=== PATIENT | male | born 1955 | race African-American/Black ===

== ENCOUNTER 2017-10-31 15:29 | Inpatient (IN) | payer OTHER ==
--- NOTE | 2017-10-31 15:32 | PDOC ---
Rapid Medical Evaluation Chief Complaint: Shortness of Breath Medical Evaluation: Allergies Allergy/AdvReac Type Severity Reaction Status Date / Time No Known Drug Allergies Allergy Verified 04/07/15 14:28 10/31/17 15:31 I have performed a brief in-person evaluation of this patient. The patient presents with a chief complaint of:Worsening sob and b/l LE edema x 1 month, no CP. Smoker w/ h/o CAD, CHF, does not remember diuretic he is taking. Cards is Dr Davis, PMD Dr Zambrano Pertinent physical exam findings:Stable w/ clear chest/lungs w/ 1+ edema b/l I have ordered the following:ekg/cxr/labs The patient will proceed to the ED for further evaluation.
[2017-10-31 15:35] VITALS: BMI 36.4
[2017-10-31 16:03] LABS: BASO % 0.7 % (0-2.0); EOS % 0.5 % (0-4.5); HEMOGLOBIN 16.8 GM/dL (11.7-16.9); MCH 31.7 pg (25.7-33.7); MCHC 32.9 g/dl (32.0-35.9); MEAN CELL VOLUME 96.2 fl (80-96); MEAN PLT VOLUME 10.7 fl (7.5-11.1); MONO % 11.5 % (3.8-10.2); NEUT % 74.3 % (42.8-82.8); PLATELET COUNT 107 K/MM3 (134-434); RDW 14.2 % (11.9-15.9); WHITE BLOOD COUNT 6.2 K/mm3 (4.0-10.0)
[2017-10-31 16:33] LABS: ALBUMIN 3.4 g/dl (3.4-5.0); ANION GAP 15 (8-16); BILIRUBIN,TOTAL 2.2 mg/dL (0.2-1.0); BLOOD UREA NITROGEN 33 mg/dL (7-18); CALCIUM 8.8 mg/dL (8.5-10.1); CHLORIDE 102 mmol/L (98-107); CO2 21 mmol/L (21-32); CREATININE 1.5 mg/dL (0.7-1.3); GLUCOSE,RANDOM 117 mg/dL (74-106); SGOT/AST 25 U/L (15-37); SGPT/ALT 30 U/L (12-78); SODIUM 138 mmol/L (136-145); TOT PROT 6.9 g/dl (6.4-8.2)
[2017-10-31 16:36] LABS: ALK PHOS 79 U/L (45-117)
[2017-10-31 17:57] LABS: URINE APPEARANCE CLEAR; URINE BILIRUBIN NEGATIVE (NEGATIVE); URINE BLOOD NEGATIVE (NEGATIVE); URINE COLOR YELLOW; URINE GLUCOSE (UA) NEGATIVE (NEGATIVE); URINE KETONE NEGATIVE (NEGATIVE); URINE NITRITE NEGATIVE (NEGATIVE); URINE PROTEIN NEGATIVE (NEGATIVE); URINE UROBILINOGEN 4.0 E.U/dl mg/dL (0.2-1.0)
[2017-10-31 17:58] LABS: URINE LEUK ESTERASE 3+ (NEGATIVE)
[2017-10-31 17:59] LABS: EPI CELLS RARE /HPF (FEW); URINE MUCUS RARE
--- NOTE | 2017-10-31 19:50 | PDOC ---
History of Present Illness - General Chief Complaint: Shortness of Breath Stated Complaint: (PCP SENT) Time Seen by Provider: 10/31/17 15:36 History Source: Patient Exam Limitations: No Limitations - History of Present Illness Initial Comments: 10/31/17 19:49 The patient is a 62M with a PMH of CHF and CAD who presents from his PCP (Dr. Zambrano)'s office for CHF exacerbation. The patient states that for the past week , he has had worsening SALES and orthopnea with increased swelling in his LE that now reach his abdomen. He states that he feels a baseline SOB and feels like he is always coughing up phlegm. He states he was admitted once in the past for this. He denies any CP, fever, chills, nausea, vomiting. Past History - Past Medical History Allergies/Adverse Reactions: Allergies Allergy/AdvReac Type Severity Reaction Status Date / Time No Known Drug Allergies Allergy Verified 10/31/17 15:34 Home Medications: Ambulatory Orders Carvedilol 3.125 mg PO BID 05/18/15 Furosemide [Lasix -] 40 mg PO DAILY 05/18/15 Ramipril 5 mg PO DAILY 05/18/15 Aspirin [Ecotrin] 81 mg PO DAILY 02/23/16 Metolazone [Zaroxolyn -] 5 mg PO DAILY 02/23/16 Spironolactone [Aldactone] 25 mg PO DAILY 02/23/16 Anemia: No Asthma: No Cancer: No Cardiac Disorders: No CVA: No COPD: No CHF: Yes Dementia: No Diabetes: No GI Disorders: No Disorders: Yes (urinary retention, has 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) HTN: Yes Hypercholesterolemia: No Liver Disease: No Seizures: No Thyroid Disease: No - Surgical History Abdominal Surgery: No Appendectomy: No Cardiac Surgery: No Cholecystectomy: No Lung Surgery: No Neurologic Surgery: No Orthopedic Surgery: No - Suicide/Smoking/Psychosocial Hx Smoking History: Current some day smoker Number of Cigarettes Smoked Daily: 10 Information on smoking cessation initiated: No 'Breaking Loose' booklet given: 02/25/16 Hx Alcohol Use: No Drug/Substance Use Hx: No Substance Use Type: None Hx Substance Use Treatment: No Review of Systems - Review of Systems Able to Perform ROS?: Yes Comments:: 10/31/17 20:01 GENERAL/CONSTITUTIONAL: No fever or chills. No weakness. HEAD, EYES, EARS, NOSE AND THROAT: No change in vision. No ear pain or discharge. No sore throat. CARDIOVASCULAR: No chest pain, palpitations, or lightheadedness. RESPIRATORY: Positive for shortness of breath and cough. No wheezing or hemoptysis. GASTROINTESTINAL: No nausea, vomiting, diarrhea, constipation, or abdominal pain. GENITOURINARY: No dysuria, frequency, hematuria, or change in urination. MUSCULOSKELETAL: No joint or muscle swelling or pain. No neck or back pain. SKIN: Positive for swelling. No rash or lesions. NEUROLOGIC: No headache, numbness, tingling, weakness, loss of consciousness, or change in strength/sensation. ENDOCRINE: No increased thirst. No abnormal weight change. HEMATOLOGIC/LYMPHATIC: No anemia, easy bleeding, or history of blood clots. ALLERGIC/IMMUNOLOGIC: No hives or skin allergy. Is the patient limited Occitan proficient: No *Physical Exam - Vital Signs Last Vital Signs Temp Pulse Resp BP Pulse Ox 97 F L 96 H 18 137/83 96 10/31/17 15:31 10/31/17 15:31 10/31/17 15:31 10/31/17 15:31 10/31/17 15:31 - Physical Exam Comments: 10/31/17 20:03 GENERAL: Well developed, well nourished. Awake and alert. No acute distress. HEENT: Normocephalic, atraumatic. Hearing grossly normal. Moist mucous membranes. PERRLA, EOMI. No conjunctival pallor. Sclera are non-icteric. NECK: Supple. Full ROM. Mild JVD. Carotid pulses 2+ and symmetric, without bruits. No thyromegaly. No lymphadenopathy. CARDIOVASCULAR: Regular rate and rhythm. No murmurs, rubs, or gallops. PULMONARY: No evidence of respiratory distress. Decreased lung sounds in R lower lobe. ABDOMINAL: Soft. Non-tender. Non-distended. No rebound or guarding. GENITOURINARY: No CVA tenderness bilaterally. MUSCULOSKELETAL: Normal range of motion at all joints. No bony deformities or tenderness. EXTREMITIES: No cyanosis. No clubbing. 4+ edema until thigh, then 1+ until lower abdomen. No calf tenderness. SKIN: Warm and dry. Normal capillary refill. No rashes. No jaundice. NEUROLOGICAL: Alert, awake, appropriate. Cranial nerves 2-12 intact. Normal speech. Gait is normal without ataxia. PSYCHIATRIC: Cooperative. Good eye contact. Appropriate mood and affect. ED Treatment Course - LABORATORY CBC & Chemistry Diagram: 10/31/17 16:00 10/31/17 16:00 - ADDITIONAL ORDERS Additional order review: Laboratory Results 10/31/17 10/31/17 10/31/17 17:52 16:00 15:55 Sodium 138 Potassium 4.0 Chloride 102 Carbon Dioxide 21 Anion Gap 15 BUN 33 H D Creatinine 1.5 H Creat Clearance w eGFR 47.12 Random Glucose 117 H D Calcium 8.8 Total Bilirubin 2.2 H D AST 25 D ALT 30 D Alkaline Phosphatase 79 Creatine Kinase 147 Troponin I 0.04 D B-Natriuretic Peptide 33405.25 H Total Protein 6.9 Albumin 3.4 Urine Color Yellow Urine Appearance Clear Urine pH 5.0 Ur Specific [place] 1.019 Urine Protein Negative Urine Glucose (UA) Negative Urine Ketones Negative Urine Blood Negative Urine Nitrite Negative Urine Bilirubin Negative Urine Urobilinogen 4.0 e.u/dl Ur Leukocyte Esterase 3+ H Urine WBC (Auto) 22 Urine RBC (Auto) 3 Ur Epithelial Cells Rare Urine Mucus Rare 10/31/17 16:00 RBC 5.30 MCV 96.2 H MCHC 32.9 RDW 14.2 D MPV 10.7 D Neutrophils % 74.3 Lymphocytes % 13.0 D Monocytes % 11.5 H Eosinophils % 0.5 Basophils % 0.7 Medical Decision Making - Medical Decision Making 10/31/17 20:04 The patient is a 62 M with a PMH of CAD and CHF who presents from Dr. Zambrano's office with a CHF exacerbation. BNP 7[address]66+. Dr. Zambrano is aware and accepts admission. Will give 40IV lasix in ED. Dr. Polanco consulted for cards. Pending admission. *DC/Admit/Observation/Transfer Diagnosis at time of Disposition: CHF (congestive heart failure) - Discharge Dispostion Condition at time of disposition: Stable Admit: Yes - Referrals Referrals: Carla Zambrano MD [Primary Care Provider] - - Patient Instructions - Post Discharge Activity
[2017-10-31] MEDS ORDERED: FUROSEMIDE 40 MG/4 ML INJECTABLE VIAL ONE (19:57)
[2017-10-31] MEDS ORDERED: FUROSEMIDE 40 MG/4 ML INJECTABLE VIAL IVPUSH ONE (20:07)
--- NOTE | 2017-10-31 20:17 | PDOC ---
Attending Attestation - Resident Resident Name: Wes Wu - ED Attending Attestation I have performed the following: I have examined & evaluated the patient, The case was reviewed & discussed with the resident, I agree w/resident's findings & plan, Exceptions are as noted - HPI HPI: 10/31/17 20:47 62 M with h/o CHF, CAD, HTN, HLD, presenting to ED with SOB. Pt states that over the past week, he has had worsening SALES, orthopnea, and BLE swelling. Denies chest pain at this time. Endorses dry cough. Denies F/C. Pt sent from Dr. Zambrano's office for evaluation of CHF. - Physicial Exam PE: 10/31/17 20:49 "GENERAL: Awake, alert, and fully oriented, in no acute distress HEAD: No signs of trauma EYES: PERRLA, EOMI, sclera anicteric, conjunctiva clear ENT: Auricles normal inspection, hearing grossly normal, nares patent, oropharynx clear without exudates. Moist mucosa NECK: Nontender, no stepoffs, Normal ROM, supple, no lymphadenopathy, JVD, or masses LUNGS: Bibasilar rales. No wheezes, and no rhonchi HEART: Regular rate and rhythm, normal S1 and S2, no murmurs, rubs or gallops ABDOMEN: Soft, nontender, normoactive bowel sounds. No guarding, no rebound. No masses EXTREMITIES: +2 PE BLE No clubbing or cyanosis. No cords, erythema, or tenderness NEUROLOGICAL: Cranial nerves II through XII intact. 5/5 strength and sensation in all extremities, Normal speech, normal gait, normal cerebellar function SKIN: Warm, Dry, normal turgor, no rashes or lesions noted. " - Medical Decision Making 10/31/17 20:49 62 M with SOB, SALES, BLE swelling, concerning for volume overload/CHF exacerbation. EKG unremarkable, no s/s of ACS. - Labs, trop, BNP - CXR - IV lasix - Admit
--- NOTE | 2017-11-01 10:40 | HP ---
Admitting History and Physical - Primary Care Physician PCP: Carla Zambrano - Admission Chief Complaint: SOB History of Present Illness: 62 yr old male with h/o sHF Class C, NYHA class 3, with EF 20-25%, HTN, dyslipedemia, present with worsening LE swelling, SOB, PNd and Orthopnea, patient is poor historian, compliance is ?, History Source: Patient - Past Medical History Cardiovascular: Yes: CHF Renal/: Yes: Renal Failure Heme/Onc: Yes: Anemia - Smoking History Smoking history: Current some day smoker Aproximately how many cigarettes per day: 10 - Alcohol/Substance Use Hx Alcohol Use: No Home Medications - Allergies Allergies/Adverse Reactions: Allergies Allergy/AdvReac Type Severity Reaction Status Date / Time No Known Drug Allergies Allergy Verified 10/31/17 15:34 - Home Medications Home Medications: Ambulatory Orders Carvedilol 3.125 mg PO BID 05/18/15 Furosemide [Lasix -] 40 mg PO DAILY 05/18/15 Ramipril 5 mg PO DAILY 05/18/15 Aspirin [Ecotrin] 81 mg PO DAILY 02/23/16 Metolazone [Zaroxolyn -] 5 mg PO DAILY 02/23/16 Spironolactone [Aldactone] 25 mg PO DAILY 02/23/16 Family Disease History - Family Disease History Family History: Unremarkable Review of Systems - Review of Systems Constitutional: reports: Malaise HENT: reports: No Symptoms Cardiovascular: reports: Edema, Palpitations, Shortness of Breath Gastrointestinal: reports: Bloating Musculoskeletal: reports: Back Pain Integumentary: reports: No Symptoms Neurological: reports: Dizziness Endocrine: reports: No Symptoms Hematology/Lymphatic: reports: No Symptoms Physical Examination Vital Signs: Vital Signs Temperature 97.7 F 11/01/17 07:10 Pulse Rate 71 11/01/17 07:10 Respiratory Rate 18 11/01/17 07:10 Blood Pressure 112/54 11/01/17 07:10 O2 Sat by Pulse Oximetry (%) 95 11/01/17 07:10 Elderly M sick looking , in mild respiratory distress HEENT: Mm moist, mild anemia, PEERRLA, EOMI NECK: JVD+, no Bruit CHEST: B/L Basal crepts, no Chest wall tenderness CVS; S1S2 irr SM in MA, ABD: + distention , non tender Bs + EXT ; B/L +2 edema and Pulses +, no calf tenderness. CLIENT SERVICES ASSISTANT: AOX3 Moving all extremities, non focal Labs: CBC, BMP 10/31/17 16:00 10/31/17 16:00 Imaging - Results Chest X-ray: Pending (Cardiomegaly , B/l basal crepts) EKG: Report Reviewed (94 NSR ocassional PVcs no acute ST t changes) Problem List - Problems (1) Acute exacerbation of congestive heart failure Assessment/Plan: known case of systolic HF with last 25%, most likely non-ischaemic cardiomyopathy, will rpt ECHO, serial CE , Cardiology consult, Lasix 40 mg BID IVSS F/U BMP cont Coreg Ramipril. aldactone Code(s): I50.9 - HEART FAILURE, UNSPECIFIED (2) Acute combined systolic and diastolic HF (heart failure), NYHA class 3 Assessment/Plan: Cont Diuretics, Daily wt F/U BMP, Optimize CHF management, if persistent low EF needs evaluation for AICD placement Code(s): I50.41 - ACUTE COMBINED SYSTOLIC AND DIASTOLIC (CONGESTIVE) HRT FAIL (3) HTN (hypertension) Code(s): I10 - ESSENTIAL (PRIMARY) HYPERTENSION (4) Chronic kidney disease (CKD), stage III (moderate) Assessment/Plan: Due to HTN dises F/U BMP Code(s): N18.3 - CHRONIC KIDNEY DISEASE, STAGE 3 (MODERATE) (5) Hypercholesteremia Assessment/Plan: F/U Lipid panel, TSH, HbA!C optimize statin Code(s): E78.00 - PURE HYPERCHOLESTEROLEMIA, UNSPECIFIED
[2017-11-01] MEDS: FUROSEMIDE 40 MG/4 ML INJECTABLE VIAL IVPUSH SCH (11:10)
[2017-11-01] MEDS ORDERED: ENOXAPARIN NA (PORCINE) 40 MG/0.4 ML DISP.SYRIN SQ ONE (11:12)
[2017-11-01] MEDS: ENOXAPARIN NA (PORCINE) 30 MG/0.3 ML DISP.SYRIN SQ SCH (11:13)
--- NOTE | 2017-11-01 12:16 | EKG ---
Test Reason : Blood Pressure : / mmHG Vent. Rate : 080 BPM Atrial Rate : 080 BPM P-R Int : 186 ms QRS Dur : 104 ms QT Int : 410 ms P-R-T Axes : 068 062 -64 degrees QTc Int : 472 ms SINUS RHYTHM WITH FREQUENT PREMATURE VENTRICULAR COMPLEXES POSSIBLE LEFT ATRIAL ENLARGEMENT NONSPECIFIC T WAVE ABNORMALITY PROLONGED QT ABNORMAL ECG WHEN COMPARED WITH ECG OF 31-OCT-2017 20:28, T WAVE INVERSION NOW EVIDENT IN LATERAL LEADS Confirmed by ANTHONY LEON MD ([id number]) on 11/01/2017 12:16:08 PM Referred By: Confirmed By:ANTHONY LEON MD
--- NOTE | 2017-11-01 12:21 | CONS ---
DATE OF CONSULTATION: 11/01/2017 TIME OF CONSULTATION: 10 a.m. REQUESTING PHYSICIAN: Carla Zambrano MD LOCATION: Emergency room. CHIEF COMPLAINTS: 1. Increasing shortness of breath. 2. Increasing edema and abdominal girth. HISTORY OF PRESENT ILLNESS: The patient is a 62-year-old gentleman who has history of hypertension and congestive heart failure, who was admitted with increasing dyspnea on exertion, followed by orthopnea and progressive pedal edema and increasing abdominal girth, and he was experiencing paroxysmal nocturnal dyspnea. He denies having chest pain or discomfort either at rest or with exertion. No history of palpitations, lightheadedness, dizziness, presyncope, or syncope. He has cough that is scantly productive and also has been wheezing. On questioning, he admits to poor dietary compliance and apparently has not been taking his medications as prescribed. There is no history of diabetes mellitus. No history of rheumatic fever or heart murmur. PAST HISTORY: As mentioned in the history of present illness. SURGICAL HISTORY: Patient says he has had no surgeries. 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 He continues to smoke but did not elaborate at the amount of cigarettes he smokes on a daily basis. He periodically has a drink. Denies drug use. FAMILY HISTORY: His father is . Patient is unsure of the cause of his , and he was not close to his father. Mother in her 70s, related to dementia. He has no siblings. ALLERGIES: None reported. MEDICATIONS: The patient is unsure of the name of the medications. In the hospital record, it was reported that he was on the following medications: 1. Carvedilol 3.125 mg p.o. b.i.d. 2. Furosemide 40 mg p.o. daily. 3. Ramipril 5 mg p.o. daily. 4. Aspirin 81 mg p.o. daily. 5. Metolazone (Zaroxolyn) 5 mg p.o. daily. 6. Spironolactone 25 mg p.o. daily. In-hospital medications: Furosemide IV. REVIEW OF SYSTEMS: Constitutional: No history of chills, fever, or night sweats reported. No history of unintentional weight loss. HEENT: No history of headaches, diplopia, blurred vision. No history of epistaxis, hoarseness, tinnitus, or deafness reported. Cardiovascular: See history of present illness. Respiratory: See history of present illness. No history of hemoptysis or tuberculosis. Gastrointestinal: History of increasing abdominal girth and intermittent discomfort. No history of nausea, vomiting, melena, or hematemesis. No history of change in bowel habits reported. Central Nervous System: No history of lightheadedness, dizziness, presyncope, or syncope. No history of seizures or focal weakness. Endocrine: No history of polyuria or polydipsia. Denies intolerance to cold or warm weather. Genitourinary: History of difficulty in micturition. Patient states that in the past he had a Collins catheter for nearly a year. No history of hematuria, dysuria, or frequency reported. Musculoskeletal: No history of myalgias or arthralgias. Hematological: No history of ecchymosis, bleeding, or anemia. PHYSICAL EXAMINATION: General: A 62-year-old gentleman who was mildly dyspneic. There was no pallor, cyanosis, clubbing, or jaundice. Vital Signs: Weight 247 pounds. Blood pressure 112/54 mmHg. Pulse 71 beats per minute and regular. Temperature 97.7 degrees Fahrenheit. Oxygen saturation 95% on room air. Neck: Supple. Elevated JVP at 30 degrees. Positive hepatojugular reflex. Carotids were 1+ to 2+. No bruits were appreciated. There was no thyromegaly. Heart: PMI was not well localized. No heaves or thrills. Heart sounds were distant. No murmurs were heard. There was a S3 gallop at the apex. Lungs: Decreased breath sounds at the bases. No expiratory wheezing. There were scattered crepitations at the right base. Chest: Normal AP diameter. Expansion was symmetrical. Abdomen: Protuberant, distended, nontender. No hepatosplenomegaly was appreciated. No palpable masses were felt. There was dullness on percussion involving both flanks, and there was dullness over the hypogastric area with slight guarding. Bowel sounds were diminished. No bruits were heard. Extremities: Bilateral 3+ to 4+ pitting edema involving both lower extremities and thighs. Dorsalis pedis and posterior tibial pulses could not be palpated. LABORATORY DATA: Chemistry: Sodium 138, potassium 4.0, chloride 102, CO2 of 21 mmol/L. BUN 33, creatinine 1.5 mg/dL. Random glucose 117 mg/dL. Calcium 8.8 mg/dL. Total bilirubin 2.2. AST 25, ALT 30, alkaline phosphatase 79. CK 147. Troponin 0.04. BNP 12,993.25. CBC: WBC count 6200, hemoglobin 16.8 g, hematocrit 51%, platelet count 107,000. Differential: Neutrophils 74.3%, lymphocytes 13.0%, monocytes 11.5%, eosinophils 0.5%, basophils 0.7%. Urinalysis revealed elevated urine urobilinogen 4.0. Urine leukocyte esterase was 3+. Urine WBCs were 22, RBCs were 3, rare urine mucus and epithelial cells. X-ray chest, October 31, 2017: Since April 07, 2015, there is a persistently elevated right hemidiaphragm with right base atelectasis and infiltrate with fluid. There is large heart, degenerative changes, and clear left lung. Followup recommended. IMPRESSION: 1. Congestive heart failure, [place] Heart Classification 4; etiology most probably related to hypertension, hypertensive cardiovascular disease. 2. Coronary artery disease needs exclusion. 3. Generalized anasarca secondary to number 1. 4. Urinary retention, suspect distended urinary bladder; etiology to be determined. 5. Poor compliance. 6. Tobacco abuse. 7. Thrombocytopenia, etiology to be determined; hypersplenism needs to be excluded. 8. Renal insufficiency. 9. Chronic cough; etiology A. Secondary to congestive heart failure. B. Angiotensin-converting enzyme inhibitors. C. Asthma needs to be excluded. RECOMMENDATIONS: 1. All his medications need to be obtained. 2. Resume Lasix preceded by Zaroxolyn initially 2.5 mg p.o. 1/2 hour before Lasix and dose could be adjusted. 3. Consider switching him to an ARB. 4. Resume carvedilol and titrate to tolerance or maximum dose of 25 mg b.i.d. 5. Follow up ECGs and enzymes. 6. Follow up comprehensive metabolic profile, CBC. 7. Consider an ultrasound of the urinary bladder, and if it is distended, he may require a Collins catheter. 8. Echocardiogram. 9. Follow up chest x-ray. 10. Further suggestions will depend upon the results of the above-mentioned tests. Thank you for your referral. Yours sincerely, FAB SWIFT M.D. [id number]
[2017-11-01 12:23] LABS: ANION GAP 11 (8-16); BLOOD UREA NITROGEN 30 mg/dL (7-18); CALCIUM 8.9 mg/dL (8.5-10.1); CHLORIDE 102 mmol/L (98-107); CO2 25 mmol/L (21-32); CREATININE 1.3 mg/dL (0.7-1.3); GLUCOSE,RANDOM 108 mg/dL (74-106); SODIUM 138 mmol/L (136-145)
[2017-11-01 12:27] LABS: MAGNESIUM 2.6 mg/dL (1.8-2.4); POTASSIUM 4.9 mmol/L (3.5-5.1)
[2017-11-01] MEDS ORDERED: CARVEDILOL 3.125 MG TABLET (FP) ONE (14:50)
[2017-11-01] MEDS: CARVEDILOL 3.125 MG TABLET (FP) PO SCH ×2 (14:51→21:56)
--- NOTE | 2017-11-01 16:09 | EKG ---
Test Reason : Blood Pressure : / mmHG Vent. Rate : 094 BPM Atrial Rate : 094 BPM P-R Int : 166 ms QRS Dur : 102 ms QT Int : 384 ms P-R-T Axes : 055 090 034 degrees QTc Int : 480 ms SINUS RHYTHM WITH OCCASIONAL PREMATURE VENTRICULAR COMPLEXES POSSIBLE LEFT ATRIAL ENLARGEMENT RIGHTWARD AXIS PULMONARY DISEASE PATTERN PROLONGED QT ABNORMAL ECG WHEN COMPARED WITH ECG OF 07-APR-2015 13:56, PREMATURE VENTRICULAR COMPLEXES ARE NOW PRESENT QUESTIONABLE CHANGE IN QRS AXIS T WAVE INVERSION NO LONGER EVIDENT IN LATERAL LEADS Confirmed by ANTHONY LEON MD ([id number]) on 11/01/2017 4:08:49 PM Referred By: Confirmed By:ANTHONY LEON MD
[2017-11-01] MEDS: LOSARTAN POTASSIUM 25 MG TABLET PO SCH (16:45)
[2017-11-01 18:59] LABS: BASO % 0.8 % (0-2.0); EOS % 0.7 % (0-4.5); HEMATOCRIT 48.8 % (35.4-49); LYMPH % 17.5 % (8-40); MCH 31.9 pg (25.7-33.7); MCHC 32.7 g/dl (32.0-35.9); MEAN CELL VOLUME 97.5 fl (80-96); MEAN PLT VOLUME 11.6 fl (7.5-11.1); MONO % 13.9 % (3.8-10.2); NEUT % 67.1 % (42.8-82.8); RBC 5.01 M/mm3 (4.00-5.60); RDW 14.2 % (11.9-15.9); WHITE BLOOD COUNT 5.2 K/mm3 (4.0-10.0)
[2017-11-01 19:30] LABS: PLATELET COUNT 93 K/MM3 (134-434)
[2017-11-01 19:31] LABS: PLATELET ESTIMATE DECREASED
[2017-11-01] MEDS ORDERED: FUROSEMIDE 40 MG/4 ML INJECTABLE VIAL IVPUSH ONE (19:52)
[2017-11-02 07:42] LABS: ANION GAP 7 (8-16); BLOOD UREA NITROGEN 32 mg/dL (7-18); CALCIUM 8.1 mg/dL (8.5-10.1); CHLORIDE 102 mmol/L (98-107); CO2 29 mmol/L (21-32); CREATININE 1.4 mg/dL (0.7-1.3); GLUCOSE,RANDOM 105 mg/dL (74-106); SODIUM 138 mmol/L (136-145)
[2017-11-02 07:58] LABS: BASO % 0.7 % (0-2.0); EOS % 0.8 % (0-4.5); HEMATOCRIT 48.5 % (35.4-49); LYMPH % 20.5 % (8-40); MCH 31.7 pg (25.7-33.7); MCHC 32.9 g/dl (32.0-35.9); MEAN CELL VOLUME 96.2 fl (80-96); MEAN PLT VOLUME 11.2 fl (7.5-11.1); MONO % 12.9 % (3.8-10.2); NEUT % 65.1 % (42.8-82.8); PLATELET COUNT 86 K/MM3 (134-434); RBC 5.04 M/mm3 (4.00-5.60); RDW 14.1 % (11.9-15.9); WHITE BLOOD COUNT 4.4 K/mm3 (4.0-10.0)
[2017-11-02] MEDS ORDERED: RAMIPRIL 5 MG CAPSULE (FP) PO SCH (10:00)
[2017-11-02] MEDS ORDERED: METOLAZONE 5 MG TABLET PO SCH (10:00)
[2017-11-02] MEDS: ASPIRIN COATED 81 MG TABLET.EC PO SCH (10:14)
[2017-11-02] MEDS: CARVEDILOL 3.125 MG TABLET (FP) PO SCH (10:14)
[2017-11-02] MEDS: METOLAZONE 2.5 MG TABLET (FP) PO SCH (10:14)
[2017-11-02] MEDS: ENOXAPARIN NA (PORCINE) 30 MG/0.3 ML DISP.SYRIN SQ SCH (10:14)
[2017-11-02] MEDS: SPIRONOLACTONE 25 MG TABLET (FP) PO SCH (10:15)
[2017-11-02] MEDS: LOSARTAN POTASSIUM 25 MG TABLET PO SCH (10:15)
[2017-11-02] MEDS: FUROSEMIDE 40 MG/4 ML INJECTABLE VIAL IVPUSH SCH (11:36)
--- NOTE | 2017-11-02 12:39 | PN ---
Progress Note (short form) - Note Progress Note: 62 year old AA gentleman admitted with congestive heart failure and generalized anasarca. Patient states that shortness of breath is less pronounced, no history of chest pain or discomfort. He denies having hypertension or diabetes mellitus. Active Medications Generic Name Dose Route Start Last Admin Trade Name Zaheerq PRN Reason Stop Dose Admin Aspirin 81 mg 11/02/17 10:00 11/02/17 10:14 Ecotrin - PO 81 mg DAILY DIVINE Administration Carvedilol 3.125 mg 11/01/17 11:45 11/02/17 10:14 Coreg - PO 3.125 mg BID DIVINE Administration Enoxaparin Sodium 30 mg 11/01/17 10:45 11/02/17 10:14 Lovenox - SQ 30 mg DAILY DIVINE Administration Furosemide 40 mg 11/02/17 10:00 11/02/17 11:36 Lasix Injection - IVPUSH 40 mg DAILY DIVINE Administration Losartan Potassium 25 mg 11/01/17 15:30 11/02/17 10:15 Cozaar - PO 25 mg DAILY DIVINE Administration Metolazone 2.5 mg 11/02/17 09:30 11/02/17 10:14 Zaroxolyn - PO 2.5 mg DAILY@0930 DIVINE Administration Spironolactone 25 mg 11/02/17 10:00 11/02/17 10:15 Aldactone - PO 25 mg DAILY DIVINE Administration 62 year old male in no acute distress, no pallor, clubbing, cyanosis or jaundice. Last Vital Signs Temp Pulse Resp BP Pulse Ox 96.6 F L 75 20 116/50 100 11/02/17 10:00 11/02/17 10:00 11/02/17 10:00 11/02/17 10:00 11/02/17 09:00 Neck: Supple, no JVD, +HJR, carotids were equal and upstrokes were normal, no thyromegaly appreciated. Heart: PMI was in the 5th intercostal space, no heaves or thrills. Distant heart sounds S1 and S2 were normal. No murmurs or gallops were appreciated. Lungs: Clear on auscultation bilaterally. Abdomen: Soft, distended, nontender, no hepatosplenomegaly appreciated, dullness in both flank on percussion most likely related to ascites. No palpable masses were felt. Extremities: No calf tenderness. + 2+ bilateral pitting edema. Pulses are normal. CBC, BMP 11/02/17 06:50 11/02/17 06:50 Echocardiogram: Interpretation Summary The left ventricle is severely dilated. Left ventricular systolic function is severely reduced. There is severe global hypokinesis of the left ventricle. The right ventricle is severely dilated. The right ventricular systolic function is severely reduced. The left atrium is severely dilated The right atrium is severely dilated. There is mild to moderate mitral regurgitation. There is mild tricuspid regurgitation. EK10/31/2017 Sinus rhythm, IACD, indeterminate axis, unifocal premature ventricular beats. Nonspecific ST and T wave abnormalities. 11/01/2017 Sinus rhythm with IACD, frequent unifocal and single premature ventricular beats compare to 10/31/2017. St and T wave abnormalities are noted and are more pronounced in lead II III aVF and V6. IMPRESSION: 1. Dilated Congestive Cardiomyopathy of undetermined etiology. 2. Congestive heart failure, NYHA Class IV. 3. Severe LV and RV systolic dysfunction. 4. Generalized anasarca secondary to number 1. 5. Renal insufficiency. 6. Chronic cough, etiology; a). Secoondary to GRETA inhibitors. b). CHF. 7. Poor compliance. 8. Ventricular premature beats. RECOMMENDATION: 1. In view of echocardiographic findings, patient should have a cardiac catheterization to determine the etiology of biventricular failure. 2. Patient most likely is a candidate for ICD for primary prophylaxis as his EF is below 30%. 3. Risk modifications and medication compliance is of paramount importance and this has been discussed with the patient. 4. Daily weights. 5. If blood pressure is stable, cautious effort titration of Carvedilol. PROGNOSIS: Critical.
--- NOTE | 2017-11-02 16:48 | PN ---
Progress Note, Physician Chief Complaint: Feels improved less SOB no c/o chest pain - Current Medication List Current Medications: Active Medications Aspirin (Ecotrin -) 81 mg PO DAILY [facility] Last Admin: 11/02/17 10:14 Dose: 81 mg Carvedilol (Coreg -) 6.25 mg PO BID [facility] Enoxaparin Sodium (Lovenox -) 30 mg SQ DAILY [facility] Last Admin: 11/02/17 10:14 Dose: 30 mg Furosemide (Lasix Injection -) 40 mg IVPUSH DAILY [facility] Last Admin: 11/02/17 11:36 Dose: 40 mg Losartan Potassium (Cozaar -) 25 mg PO DAILY [facility] Last Admin: 11/02/17 10:15 Dose: 25 mg Metolazone (Zaroxolyn -) 2.5 mg PO DAILY@0930 [facility] Last Admin: 11/02/17 10:14 Dose: 2.5 mg Spironolactone (Aldactone -) 25 mg PO DAILY [facility] Last Admin: 11/02/17 10:15 Dose: 25 mg - Objective Vital Signs: Vital Signs Temperature 97.5 F L 11/02/17 14:00 Pulse Rate 81 11/02/17 14:00 Respiratory Rate 16 11/02/17 14:00 Blood Pressure 103/72 11/02/17 14:00 O2 Sat by Pulse Oximetry (%) 100 11/02/17 09:00 Elderly M no respiratory distress HEENT: Mm moist, mild anemia, PEERRLA, EOMI NECK: JVD+, no Bruit CHEST: B/L Basal crepts, no Chest wall tenderness CVS; S1S2 irr SM in [place], ABD: + distention , non tender Bs + EXT ; B/L +1 edema and Pulses +, no calf tenderness. 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 all extremities, non focal Labs: CBC, BMP 11/02/17 06:50 11/02/17 06:50 Problem List - Problems (1) Acute exacerbation of congestive heart failure Assessment/Plan: known case of systolic HF with last 25%, most likely non-ischaemic cardiomyopathy, pt ECHO show low EF , Cardiology consult, Lasix 40 mg daily IVSS F/U BMP cont Coreg L oasratan aldactone< Metazolone Code(s): I50.9 - HEART FAILURE, UNSPECIFIED (2) Acute combined systolic and diastolic HF (heart failure), NYHA class 3 Assessment/Plan: Cont Diuretics, Daily wt F/U BMP, Optimize CHF management, persistent low EF needs evaluation for AICD placement Code(s): I50.41 - ACUTE COMBINED SYSTOLIC AND DIASTOLIC (CONGESTIVE) HRT FAIL (3) HTN (hypertension) Assessment/Plan: Well controlled on current meds Code(s): I10 - ESSENTIAL (PRIMARY) HYPERTENSION (4) Chronic kidney disease (CKD), stage III (moderate) Assessment/Plan: Due to HTN disease F/U BMP Code(s): N18.3 - CHRONIC KIDNEY DISEASE, STAGE 3 (MODERATE)
[2017-11-02] MEDS: CARVEDILOL 6.25 MG TABLET (FP) PO SCH (21:06)
[2017-11-02] MEDS ORDERED: ZOLPIDEM TARTRATE 5 MG TABLET PO PRN (22:00)
[2017-11-03] MEDS: METOLAZONE 2.5 MG TABLET (FP) PO SCH (09:44)
[2017-11-03] MEDS: ENOXAPARIN NA (PORCINE) 30 MG/0.3 ML DISP.SYRIN SQ SCH (09:45)
[2017-11-03] MEDS: FUROSEMIDE 40 MG/4 ML INJECTABLE VIAL IVPUSH SCH (10:47)
[2017-11-03] MEDS: LOSARTAN POTASSIUM 25 MG TABLET PO SCH (10:47)
[2017-11-03] MEDS: CARVEDILOL 6.25 MG TABLET (FP) PO SCH ×2 (10:47→21:06)
[2017-11-03] MEDS: ASPIRIN COATED 81 MG TABLET.EC PO SCH (10:47)
[2017-11-03] MEDS: SPIRONOLACTONE 25 MG TABLET (FP) PO SCH (10:47)
--- NOTE | 2017-11-03 15:10 | PN ---
Progress Note, Physician Chief Complaint: Feels better History of Present Illness: CHF - Current Medication List Current Medications: Active Medications Aspirin (Ecotrin -) 81 mg PO DAILY [facility] Last Admin: 11/03/17 10:47 Dose: 81 mg Carvedilol (Coreg -) 6.25 mg PO BID [facility] Last Admin: 11/03/17 10:47 Dose: 6.25 mg Enoxaparin Sodium (Lovenox -) 30 mg SQ DAILY [facility] Last Admin: 11/03/17 09:45 Dose: 30 mg Furosemide (Lasix Injection -) 40 mg IVPUSH DAILY [facility] Last Admin: 11/03/17 10:47 Dose: 40 mg Losartan Potassium (Cozaar -) 25 mg PO DAILY [facility] Last Admin: 11/03/17 10:47 Dose: 25 mg Metolazone (Zaroxolyn -) 2.5 mg PO DAILY@0930 [facility] Last Admin: 11/03/17 09:44 Dose: 2.5 mg Spironolactone (Aldactone -) 25 mg PO DAILY [facility] Last Admin: 11/03/17 10:47 Dose: 25 mg Zolpidem Tartrate (Ambien -) 5 mg PO PRN PRN Reason: INSOMNIA - Objective Vital Signs: Vital Signs Temperature 97.3 F L 11/03/17 13:05 Pulse Rate 80 11/03/17 13:05 Respiratory Rate 19 11/03/17 13:05 Blood Pressure 110/68 11/03/17 13:05 O2 Sat by Pulse Oximetry (%) 99 11/03/17 09:00 Constitutional: Yes: Mild Distress Eyes: Yes: WNL HENT: Yes: WNL Neck: Yes: WNL Cardiovascular: Yes: WNL Respiratory: Yes: WNL Gastrointestinal: Yes: WNL ...Rectal Exam: Yes: Deferred Genitourinary: Yes: WNL Edema: LLE: 2+, RLE: 2+ Psychiatric: Yes: Alert Labs: CBC, BMP 11/02/17 06:50 11/02/17 06:50 Assessment/Plan Continue same trt May need to transfer to [facility]
[2017-11-04] MEDS: METOLAZONE 2.5 MG TABLET (FP) PO SCH (09:01)
[2017-11-04] MEDS: CARVEDILOL 6.25 MG TABLET (FP) PO SCH ×2 (09:01→21:31)
[2017-11-04] MEDS: ENOXAPARIN NA (PORCINE) 30 MG/0.3 ML DISP.SYRIN SQ SCH (09:01)
[2017-11-04] MEDS: SPIRONOLACTONE 25 MG TABLET (FP) PO SCH (09:01)
[2017-11-04] MEDS: ASPIRIN COATED 81 MG TABLET.EC PO SCH (09:02)
[2017-11-04] MEDS: LOSARTAN POTASSIUM 25 MG TABLET PO SCH (09:02)
[2017-11-04] MEDS: FUROSEMIDE 40 MG/4 ML INJECTABLE VIAL IVPUSH SCH (09:49)
[2017-11-04 11:44] LABS: CHLORIDE 99 mmol/L (98-107); SODIUM 134 mmol/L (136-145)
[2017-11-04 11:50] LABS: ANION GAP 8 (8-16); BLOOD UREA NITROGEN 28 mg/dL (7-18); CALCIUM 8.3 mg/dL (8.5-10.1); CO2 27 mmol/L (21-32); CREATININE 1.4 mg/dL (0.7-1.3); GLUCOSE,RANDOM 142 mg/dL (74-106)
--- NOTE | 2017-11-04 12:01 | PN ---
Progress Note, Physician Chief Complaint: Feels improved less SOB no c/o chest pain loosing wt - Current Medication List Current Medications: Active Medications Aspirin (Ecotrin -) 81 mg PO DAILY [facility] Last Admin: 11/04/17 09:02 Dose: 81 mg Carvedilol (Coreg -) 6.25 mg PO BID [facility] Last Admin: 11/04/17 09:01 Dose: 6.25 mg Enoxaparin Sodium (Lovenox -) 30 mg SQ DAILY [facility] Last Admin: 11/04/17 09:01 Dose: 30 mg Furosemide (Lasix Injection -) 40 mg IVPUSH DAILY [facility] Last Admin: 11/04/17 09:49 Dose: 40 mg Losartan Potassium (Cozaar -) 25 mg PO DAILY [facility] Last Admin: 11/04/17 09:02 Dose: 25 mg Metolazone (Zaroxolyn -) 2.5 mg PO DAILY@0930 [facility] Last Admin: 11/04/17 09:01 Dose: 2.5 mg Spironolactone (Aldactone -) 25 mg PO DAILY [facility] Last Admin: 11/04/17 09:01 Dose: 25 mg Zolpidem Tartrate (Ambien -) 5 mg PO HS PRN PRN Reason: INSOMNIA - Objective Vital Signs: Vital Signs Temperature 97.7 F 11/04/17 09:00 Pulse Rate 74 11/04/17 09:00 Respiratory Rate 18 11/04/17 09:00 Blood Pressure 95/55 11/04/17 09:00 O2 Sat by Pulse Oximetry (%) 95 11/04/17 09:00 Elderly M no respiratory distress HEENT: Mm moist, mild anemia, PEERRLA, EOMI NECK: JVD, no Bruit CHEST: B/L Basal crepts, no Chest wall tenderness CVS; S1S2 irr SM in [place], ABD: + distention , non tender Bs + EXT ; B/L +1 edema and Pulses +, no calf tenderness. 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 aldactone, Patient is loosing wt. Code(s): I50.9 - HEART FAILURE, UNSPECIFIED (2) Acute combined systolic and diastolic HF (heart failure), NYHA class 3 Assessment/Plan: Cont Diuretics, Daily wt F/U BMP, Optimize CHF management, persistent low EF needs evaluation for AICD placement Code(s): I50.41 - ACUTE COMBINED SYSTOLIC AND DIASTOLIC (CONGESTIVE) HRT FAIL (3) HTN (hypertension) Assessment/Plan: Well controlled on current meds Code(s): I10 - ESSENTIAL (PRIMARY) HYPERTENSION (4) Chronic kidney disease (CKD), stage III (moderate) Assessment/Plan: Due to HTN dises F/U BMP Code(s): N18.3 - CHRONIC KIDNEY DISEASE, STAGE 3 (MODERATE)
[2017-11-04 12:31] LABS: CHOLESTEROL 123 mg/dL (50-200); HDL CHOLESTEROL 36 mg/dL (40-60); LDL CHOLESTEROL (ONLY SJRH) 81 mg/dL (5-100); LIPASE 161 U/L (73-393); TRIGLYCERIDES 77 mg/dL (35-160)
--- NOTE | 2017-11-04 13:37 | PN ---
Progress Note (short form) - Note Progress Note: 62 year old AA gentleman admitted with congestive heart failure, h/o severe LV systolic dysfunction, Patient states that shortness of breath is less pronounced , no history of chest pain or discomfort. No palpitations, no pnd or orthopnea Active Medications Aspirin (Ecotrin -) 81 mg PO DAILY [facility] Last Admin: 11/04/17 09:02 Dose: 81 mg Carvedilol (Coreg -) 6.25 mg PO BID [facility] Last Admin: 11/04/17 09:01 Dose: 6.25 mg Enoxaparin Sodium (Lovenox -) 30 mg SQ DAILY [facility] Last Admin: 11/04/17 09:01 Dose: 30 mg Furosemide (Lasix Injection -) 40 mg IVPUSH DAILY [facility] Last Admin: 11/04/17 09:49 Dose: 40 mg Losartan Potassium (Cozaar -) 25 mg PO DAILY [facility] Last Admin: 11/04/17 09:02 Dose: 25 mg Metolazone (Zaroxolyn -) 2.5 mg PO DAILY@0930 [facility] Last Admin: 11/04/17 09:01 Dose: 2.5 mg Spironolactone (Aldactone -) 25 mg PO DAILY [facility] Last Admin: 11/04/17 09:01 Dose: 25 mg Zolpidem Tartrate (Ambien -) 5 mg PO HS PRN PRN Reason: INSOMNIA 62 year old male in no acute distress, no pallor, clubbing, cyanosis or jaundice. Last Vital Signs Temp Pulse Resp BP Pulse Ox 97.7 F 74 18 95/55 95 11/04/17 09:00 11/04/17 09:00 11/04/17 09:00 11/04/17 09:00 11/04/17 09:00 Intake & Output 11/01/17 11/02/17 11/03/17 11/04/17 23:59 23:59 23:59 23:59 Intake Total 100 860 860 150 Output Total 3809 642 5006 Balance 100 -865 660 -1350 Weight 247 lb 237 lb 3.2 oz Neck: Supple, no JVD, +HJR, carotids were equal and upstrokes were normal, no thyromegaly appreciated. Heart: PMI was in the 5th intercostal space, no heaves or thrills. Distant heart sounds S1 and S2 were normal. No murmurs or gallops were appreciated. Lungs: Clear on auscultation bilaterally. Abdomen: Soft, distended, nontender, no hepatosplenomegaly appreciated, dullness in both flank on percussion most likely related to ascites. No palpable masses were felt. Extremities: No calf tenderness. 1+ rt. lower extremitiy pitting edema and trace LLE edema. Pulses are normal. CBC, BMP 11/02/17 06:50 11/04/17 11:20 Echocardiogram: Interpretation Summary The left ventricle is severely dilated. Left ventricular systolic function is severely reduced. There is severe global hypokinesis of the left ventricle. The right ventricle is severely dilated. The right ventricular systolic function is severely reduced. The left atrium is severely dilated The right atrium is severely dilated. There is mild to moderate mitral regurgitation. There is mild tricuspid regurgitation. EK10/31/2017 Sinus rhythm, IACD, indeterminate axis, unifocal premature ventricular beats. Nonspecific ST and T wave abnormalities. 11/01/2017 Sinus rhythm with IACD, frequent unifocal and single premature ventricular beats compare to 10/31/2017. St and T wave abnormalities are noted and are more pronounced in lead II III aVF and V6. IMPRESSION: 1. Dilated Congestive Cardiomyopathy of undetermined etiology. 2. Congestive heart failure, NYHA Class II 3. Severe LV and RV systolic dysfunction. 4. Ventricular premature beats. 5. Renal insufficiency. 6. Chronic cough, etiology; a). Secoondary to GRETA inhibitors. b). CHF. 7. Poor compliance. RECOMMENDATION: 1. Will need cardiac cath. 2. Patient most likely is a candidate for ICD for primary prophylaxis as his EF is below 30%. 3. Risk modifications and medication compliance is of paramount importance and this has been discussed with the patient. 4. Daily weights. 5. If blood pressure is stable, cautious upward titration of Carvedilol. PROGNOSIS: Critical.
[2017-11-05 06:26] VITALS: PULSE 72
[2017-11-05 07:07] LABS: BASO % 0.8 % (0-2.0); HEMATOCRIT 48.2 % (35.4-49); HEMOGLOBIN 15.9 GM/dL (11.7-16.9); LYMPH % 16.1 % (8-40); MCH 31.5 pg (25.7-33.7); MEAN CELL VOLUME 95.5 fl (80-96); MEAN PLT VOLUME 10.6 fl (7.5-11.1); MONO % 12.3 % (3.8-10.2); NEUT % 69.8 % (42.8-82.8); PLATELET COUNT 83 K/MM3 (134-434); RBC 5.05 M/mm3 (4.00-5.60); RDW 13.9 % (11.9-15.9); WHITE BLOOD COUNT 5.6 K/mm3 (4.0-10.0)
[2017-11-05 07:36] LABS: ANION GAP 12 (8-16); BLOOD UREA NITROGEN 31 mg/dL (7-18); CALCIUM 9.2 mg/dL (8.5-10.1); CHLORIDE 97 mmol/L (98-107); CO2 27 mmol/L (21-32); CREATININE 1.2 mg/dL (0.7-1.3); GLUCOSE,RANDOM 104 mg/dL (74-106); POTASSIUM 4.2 mmol/L (3.5-5.1); SODIUM 136 mmol/L (136-145)
[2017-11-05] MEDS: METOLAZONE 2.5 MG TABLET (FP) PO SCH (08:53)
[2017-11-05] MEDS: CARVEDILOL 6.25 MG TABLET (FP) PO SCH (09:08)
[2017-11-05] MEDS: SPIRONOLACTONE 25 MG TABLET (FP) PO SCH (09:08)
[2017-11-05] MEDS: ASPIRIN COATED 81 MG TABLET.EC PO SCH (09:08)
[2017-11-05] MEDS: LOSARTAN POTASSIUM 25 MG TABLET PO SCH (09:08)
[2017-11-05] MEDS: FUROSEMIDE 40 MG/4 ML INJECTABLE VIAL IVPUSH SCH ×2 (09:27→09:54)
[2017-11-05] MEDS: ENOXAPARIN NA (PORCINE) 30 MG/0.3 ML DISP.SYRIN SQ SCH (09:27)
--- NOTE | 2017-11-05 09:35 | PN ---
Progress Note, Physician Chief Complaint: Feels better History of Present Illness: Admitted with CHF and non compliance - Current Medication List Current Medications: Active Medications Aspirin (Ecotrin -) 81 mg PO DAILY [facility] Last Admin: 11/05/17 09:08 Dose: 81 mg Carvedilol (Coreg -) 6.25 mg PO BID [facility] Last Admin: 11/05/17 09:08 Dose: 6.25 mg Enoxaparin Sodium (Lovenox -) 30 mg SQ DAILY [facility] Last Admin: 11/05/17 09:27 Dose: 30 mg Furosemide (Lasix Injection -) 40 mg IVPUSH DAILY [facility] Last Admin: 11/05/17 09:27 Dose: 40 mg Losartan Potassium (Cozaar -) 25 mg PO DAILY [facility] Last Admin: 11/05/17 09:08 Dose: 25 mg Metolazone (Zaroxolyn -) 2.5 mg PO DAILY@0930 [facility] Last Admin: 11/05/17 08:53 Dose: 2.5 mg Spironolactone (Aldactone -) 25 mg PO DAILY [facility] Last Admin: 11/05/17 09:08 Dose: 25 mg Zolpidem Tartrate (Ambien -) 5 mg PO HS PRN PRN Reason: INSOMNIA - Objective Vital Signs: Vital Signs Temperature 98.3 F 11/05/17 06:25 Pulse Rate 72 11/05/17 06:25 Respiratory Rate 18 11/05/17 06:25 Blood Pressure 93/59 11/05/17 06:25 O2 Sat by Pulse Oximetry (%) 95 11/04/17 20:37 Constitutional: Yes: No Distress Eyes: Yes: WNL HENT: Yes: WNL Neck: Yes: WNL Cardiovascular: Yes: WNL Respiratory: Yes: Poor Air Entry Gastrointestinal: Yes: WNL ...Rectal Exam: Yes: Deferred Genitourinary: Yes: WNL Edema: Yes Edema: LLE: 2+, RLE: 2+ Neurological: Yes: Alert ...Motor Strength: WNL Labs: CBC, BMP 11/05/17 06:48 11/05/17 06:48 Assessment/Plan Zaroxaiiln to be increased
[2017-11-05] MEDS ORDERED: FUROSEMIDE 40 MG/4 ML INJECTABLE VIAL IVPUSH SCH (09:44)
--- NOTE | 2017-11-05 10:54 | PN ---
Progress Note (short form) - Note Progress Note: 62 year old AA gentleman admitted with congestive heart failure, h/o severe LV systolic dysfunction, Patient states that shortness of breath is less pronounced , no history of chest pain or discomfort. spoke to Dr. Zambrano regarding further workup, including cardiac cath, possible myocardial biopsy. EP evaluation for ICD. Patient is agreeable and is aware of the indications, risks /complications of the procedure and has agreed to be transferred to [facility]. PCP increased the dose of Zaroxyln. Progressive wait loss Active Medications Generic Name Dose Route Start Last Admin Trade Name Freq PRN Reason Stop Dose Admin Aspirin 81 mg 11/02/17 10:00 11/05/17 09:08 Ecotrin - PO 81 mg DAILY [facility] Administration Carvedilol 6.25 mg 11/02/17 22:00 11/05/17 09:08 Coreg - PO 6.25 mg BID [facility] Administration Enoxaparin Sodium 30 mg 11/01/17 10:45 11/05/17 09:27 Lovenox - SQ 30 mg DAILY [facility] Administration Furosemide 40 mg 11/05/17 09:44 Lasix Injection - IVPUSH BIDLASIX [facility] Losartan Potassium 25 mg 11/01/17 15:30 11/05/17 09:08 Cozaar - PO 25 mg DAILY [facility] Administration Metolazone 5 mg 11/05/17 13:30 Zaroxolyn - PO BID@0530,1330 [facility] Spironolactone 25 mg 11/02/17 10:00 11/05/17 09:08 Aldactone - PO 25 mg DAILY [facility] Administration Zolpidem Tartrate 5 mg 11/02/17 22:00 Ambien - PO HS PRN INSOMNIA 62 year old male in no acute distress, no pallor, clubbing, cyanosis or jaundice. Last Vital Signs Temp Pulse Resp BP Pulse Ox 98.3 F 72 18 93/59 95 11/05/17 06:25 11/05/17 06:25 11/05/17 06:25 11/05/17 06:25 11/04/17 20:37 Intake & Output 11/02/17 11/03/17 11/04/17 11/05/17 23:59 23:59 23:59 23:59 Intake Total 860 860 550 300 Output Total 6037 709 2055 550 Balance -865 660 -2100 -250 Weight 237 lb 3.2 oz 232 lb 6 oz Neck: Supple, no JVD, +HJR, carotids were equal and upstrokes were normal, no thyromegaly appreciated. Heart: PMI was in the 5th intercostal space, no heaves or thrills. Distant heart sounds S1 and S2 were normal. No murmurs or gallops were appreciated. Lungs: Clear on auscultation bilaterally. Abdomen: Soft, distended, nontender, no hepatosplenomegaly appreciated, dullness in both flank on percussion most likely related to ascites. No palpable masses were felt. Extremities: No calf tenderness. 1-2+ rt. lower extremitiy pitting edema and 1-+ LLE edema. Pulses are normal. CBC, BMP 11/05/17 06:48 11/05/17 06:48 Echocardiogram: Interpretation Summary The left ventricle is severely dilated. Left ventricular systolic function is severely reduced. There is severe global hypokinesis of the left ventricle. The right ventricle is severely dilated. The right ventricular systolic function is severely reduced. The left atrium is severely dilated The right atrium is severely dilated. There is mild to moderate mitral regurgitation. There is mild tricuspid regurgitation. EK10/31/2017 Sinus rhythm, IACD, indeterminate axis, unifocal premature ventricular beats. Nonspecific ST and T wave abnormalities. 11/01/2017 Sinus rhythm with IACD, frequent unifocal and single premature ventricular beats compare to 10/31/2017. St and T wave abnormalities are noted and are more pronounced in lead II III aVF and V6. IMPRESSION: 1. Dilated Congestive Cardiomyopathy of undetermined etiology. 2. Congestive heart failure, NYHA Class II 3. Severe LV and RV systolic dysfunction. 4. Ventricular premature beats. 5. Renal insufficiency. 6. Chronic cough, etiology; a). Secoondary to GRETA inhibitors. b). CHF. 7. Poor compliance. RECOMMENDATION: 1. Patient agreeable for transfer, arrangements to be made 2. Patient is a candidate for ICD for primary prophylaxis as his EF is below 30% . 3. Risk modifications and medication compliance is of paramount importance and this has been discussed with the patient. 4. Daily weights. 5. If blood pressure is stable, cautious upward titration of Carvedilol. 6. Close f/u of electrolytes. PROGNOSIS: Guarded
[2017-11-05] MEDS ORDERED: METOLAZONE 5 MG TABLET PO SCH (13:30)
[2017-11-05 15:01] VITALS: BP 92/53; TEMP 97.5
--- NOTE | 2017-11-05 16:09 | DS ---
Physical Examination Vital Signs: Vital Signs Temperature 97.5 F L 11/05/17 15:00 Pulse Rate 72 11/05/17 15:00 Respiratory Rate 18 11/05/17 15:00 Blood Pressure 92/53 11/05/17 15:00 O2 Sat by Pulse Oximetry (%) 95 11/05/17 09:00 Meddle aged man feels comfortable LE swelling is decreasing HEENT: Mm moist, no anemia, PERRLA EOMI NECK; JVD +, No Bruit CHEST: Basal Crepts CVS:S1S2 R ABD: Obese non tender Bs + EXT" Edema feet +, Pulses +1 FISHER; AOX3 Non focal Labs: CBC, BMP 11/05/17 06:48 11/05/17 06:48 Discharge Summary Reason For Visit: CONGESTIVE HEART FAILURE Current Active Problems Acute combined systolic and diastolic HF (heart failure), NYHA class 3 (Acute) Acute exacerbation of congestive heart failure (Acute) CHF (congestive heart failure) (Acute) Chronic kidney disease (CKD), stage III (moderate) (Acute) HTN (hypertension) (Acute) Hypercholesteremia (Acute) Procedures: Principal: ECHO Hospital Course: 62 year old AA gentleman admitted with congestive heart failure, h/o severe LV systolic dysfunction, Patient states that shortness of breath is less pronounced , no history of chest pain or discomfort. Improved on IV lasix needs further w/ u cardiac cath, possible myocardial biopsy. EP evaluation for ICD. Patient is agreeable and is aware of the indications, risks /complications of the procedure and has agreed to be transferred to [facility]. Condition: Stable - Instructions Referrals: Carla Zambrano MD [Primary Care Provider] - Disposition: TRANSFER ACUTE CARE/OTHER HOSP - Home Medications Comprehensive Discharge Medication List: Ambulatory Orders Carvedilol 3.125 mg PO BID 05/18/15 Furosemide [Lasix -] 40 mg PO DAILY 05/18/15 Ramipril 5 mg PO DAILY 05/18/15 Aspirin [Ecotrin] 81 mg PO DAILY 02/23/16 Metolazone [Zaroxolyn -] 5 mg PO DAILY 02/23/16 Spironolactone [Aldactone] 25 mg PO DAILY 02/23/16 Carvedilol [Coreg -] 6.25 mg PO BID tablet 11/05/17 Enoxaparin [Lovenox -] 30 mg SQ DAILY disp.[facility] 11/05/17 Furosemide Injection [Lasix Injection -] 40 mg IVPUSH DAILY vial 11/05/17 Metolazone [Zaroxolyn -] 2.5 mg PO DAILY@0930 tablet 11/05/17 Metolazone [Zaroxolyn -] 5 mg PO BID@0530,1330 tablet 11/05/17 Zolpidem Tartrate [Ambien] 5 mg PO HS PRN 1 Days #30 tablet MDD 1 11/05/17
== END 2017-11-05 17:03 | disposition short-term general hospital (02) | DRG 291 ==
LOC: JER 15:29 → JERBED 19:50 → J4S 11-01 16:01
PROVIDERS: ADMIT Internal Medicine; ATTEND Internal Medicine
DX: I13.0 Hypertensive heart and chronic kidney disease with heart failure and stage 1 through stage 4 chronic kidney disease, or unspecified chronic kidney disease (principal); I50.43 Acute on chronic combined systolic (congestive) and diastolic (congestive) heart failure; I25.10 Atherosclerotic heart disease of native coronary artery without angina pectoris; E78.5 Hyperlipidemia, unspecified; D64.9 Anemia, unspecified; F17.200 Nicotine dependence, unspecified, uncomplicated; N18.3 Chronic kidney disease, stage 3 (moderate); I42.0 Dilated cardiomyopathy; R05 Cough; Z91.14 Patient's other noncompliance with medication regimen
CPT/HCPCS: 36415; 71046-TC-FY; 80048; 80053; 80061; 81003; 81015; 82550; 82962; 83690; 83721; 83735; 83880; 84443; 84484; 85025; 93005; 93010; 93306-TC; 93970-TC; 99285-25

== ENCOUNTER 2019-05-26 14:56 | Inpatient (IN) | payer OTHER ==
[2019-05-26 15:09] VITALS: PULSE 99
--- NOTE | 2019-05-26 15:31 | PDOC ---
Rapid Medical Evaluation Chief Complaint: Urinary Problem Medical Evaluation: Allergies Allergy/AdvReac Type Severity Reaction Status Date / Time No Known Drug Allergies Allergy Verified 10/31/17 15:34 Vital Signs Temp Pulse Resp BP Pulse Ox 97.6 F 99 H 16 91/59 L 96 05/26/19 15:06 05/26/19 15:06 05/26/19 15:06 05/26/19 15:06 05/26/19 15:05/26/19 15:30 I have performed a brief in-person evaluation of this patient. The patient presents with a chief complaint of: Pt with hx of BPH, unable to urinate. Last void was this morning. Pertinent physical exam findings: Distended abdomen I have ordered the following: vega, urine The patient will proceed to the ED for further evaluation. Discharge Disposition - Diagnosis Urinary retention - Discharge Dispostion Condition at time of disposition: Worsened Last Admission D/C Date: 11/05/17 - Referrals - Patient Instructions - Post Discharge Activity
--- NOTE | 2019-05-26 17:55 | PDOC ---
Attending Attestation - Resident Resident Name: ArielaGissellkavonJayjaytawana - ED Attending Attestation I have performed the following: I have examined & evaluated the patient, The case was reviewed & discussed with the resident, I agree w/resident's findings & plan, Exceptions are as noted - HPI HPI: 05/26/19 17:53 63 M with h/o sHF Class C, NYHA class 3, with EF 20-25%, HTN, dyslipedemia, presenting with urinary retention. Pt states that over the past week, he has had difficulty voiding. Only able to pass a few ounces of urine at a time. Pt endorses having the urge to urinate but being unable to completely void. Denies any abdominal or flank pain. Denies dysuria. Denies F/C. Pt states that he has had urinary retention in the past and has required vega catheters on multiple occasions. - Physicial Exam PE: 05/26/19 17:54 "GENERAL: Awake, alert, and fully oriented, in no acute distress. HEAD: No signs of trauma EYES: PERRLA, EOMI, sclera anicteric, conjunctiva clear ENT: Auricles normal inspection, hearing grossly normal, nares patent, oropharynx clear without exudates. Moist mucosa NECK: Nontender, no stepoffs, Normal ROM, supple, no lymphadenopathy, JVD, or masses LUNGS: Breath sounds equal, clear to auscultation bilaterally. No wheezes, and no crackles HEART: Regular rate and rhythm, normal S1 and S2, no murmurs, rubs or gallops ABDOMEN: Soft, nontender, normoactive bowel sounds. No guarding, no rebound. No masses EXTREMITIES: Normal range of motion, no edema. No clubbing or cyanosis. No cords, erythema, or tenderness NEUROLOGICAL: Cranial nerves II through XII intact. 5/5 strength and sensation in all extremities, Normal speech, normal gait, normal cerebellar function SKIN: Warm, Dry, normal turgor, no rashes or lesions noted. - Medical Decision Making 05/26/19 17:54 63 M with decreased UOP, likely retention 2/2 mechanical obstruction. Will evaluate for renal failure. - Labs, UA - Vega 05/26/19 18:50 Labs unremarkable UA pending Pt signed out to oncoming attending, pending UA and re-evaluation
[2019-05-26 18:04] LABS: EOS % 0.3 % (0-4.5); HEMATOCRIT 43.3 % (35.4-49); HEMOGLOBIN 14.4 GM/dL (11.7-16.9); LYMPH % 7.2 % (8-40); MCH 30.9 pg (25.7-33.7); MCHC 33.2 g/dl (32.0-35.9); MEAN CELL VOLUME 93.2 fl (80-96); MEAN PLT VOLUME 10.5 fl (7.5-11.1); MONO % 10.1 % (3.8-10.2); NEUT % 81.4 % (42.8-82.8); PLATELET COUNT 145 K/MM3 (134-434); RBC 4.65 M/mm3 (4.00-5.60); RDW 14.8 % (11.9-15.9); WHITE BLOOD COUNT 12.9 K/mm3 (4.0-10.0)
[2019-05-26 18:39] LABS: ALBUMIN 3.7 g/dl (3.4-5.0); BILIRUBIN,TOTAL 2.7 mg/dL (0.2-1); BLOOD UREA NITROGEN 30.1 mg/dL (7-18); CALCIUM 9.3 mg/dL (8.5-10.1); CREATININE 1.7 mg/dL (0.55-1.3); POTASSIUM 3.8 mmol/L (3.5-5.1); TOT PROT 7.4 g/dl (6.4-8.2)
--- NOTE | 2019-05-26 19:03 | PDOC ---
History of Present Illness - General Chief Complaint: Urinary Problem Stated Complaint: URINARY PROBLEM Time Seen by Provider: 05/26/19 16:20 - History of Present Illness Initial Comments: 05/26/19 18:20 63y.o M hx of CHF, BPH and CHF, HTN and HLD presents to the ED with 1 week of increasing difficulty to void. It worsened 2 days ago after he stopped taking his medication 2 days ago. Endorses abdominal pain during void attempts only. He has had poor follow up with a urologist and is not currently taking any medications specifically geared to his BPH.He is a poor historian. He denies any fevers, chills, nausea,vomiting or hematuria. Of note, patient is non-compliant with his medications. 05/27/19 00:38 Past History - Past Medical History Allergies/Adverse Reactions: Allergies Allergy/AdvReac Type Severity Reaction Status Date / Time No Known Drug Allergies Allergy Verified 05/26/19 19:44 Home Medications: Ambulatory Orders Carvedilol 3.125 mg PO BID 05/18/15 Furosemide [Lasix -] 40 mg PO DAILY 05/18/15 Ramipril 5 mg PO DAILY 05/18/15 Aspirin [Ecotrin] 81 mg PO DAILY 02/23/16 Metolazone [Zaroxolyn -] 5 mg PO DAILY 02/23/16 Spironolactone [Aldactone] 25 mg PO DAILY 02/23/16 Carvedilol [Coreg -] 6.25 mg PO BID tablet 11/05/17 Enoxaparin [Lovenox -] 30 mg SQ DAILY disp.syrin 11/05/17 Furosemide Injection [Lasix Injection -] 40 mg IVPUSH DAILY vial 11/05/17 Metolazone [Zaroxolyn -] 2.5 mg PO DAILY@0930 tablet 11/05/17 Metolazone [Zaroxolyn -] 5 mg PO BID@0530,1330 tablet 11/05/17 Zolpidem Tartrate [Ambien] 5 mg PO HS PRN 1 Days #30 tablet MDD 1 11/05/17 Anemia: No Asthma: No Cancer: No Cardiac Disorders: No CVA: No COPD: No CHF: Yes Dementia: No Diabetes: No GI Disorders: No Disorders: Yes (urinary retention, has 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) HTN: Yes Hypercholesterolemia: No Liver Disease: No Seizures: No Thyroid Disease: No - Surgical History Abdominal Surgery: No Appendectomy: No Cardiac Surgery: No Cholecystectomy: No Lung Surgery: No Neurologic Surgery: No Orthopedic Surgery: No - Immunization History Immunization Up to Date: No - Suicide/Smoking/Psychosocial Hx Smoking History: Current every day smoker Have you smoked in the past 12 months: Yes Number of Cigarettes Smoked Daily: 10 Information on smoking cessation initiated: No 'Breaking Loose' booklet given: 11/01/17 Hx Alcohol Use: No Drug/Substance Use Hx: No Substance Use Type: None Hx Substance Use Treatment: No Review of Systems - Review of Systems Constitutional: No: Chills, Fever HEENTM: No: Blurred Vision, Tearing Respiratory: Yes: Cough. No: Shortness of Breath Cardiac (ROS): No: Chest Pain ABD/GI: Yes: Symptoms Reported : Yes: Symptoms Reported, Burning Musculoskeletal: No: Back Pain, Muscle Pain Integumentary: No: Bruising, Change in Color Neurological: No: Headache *Physical Exam - Vital Signs Last Vital Signs Temp Pulse Resp BP Pulse Ox 97.6 F 99 H 16 91/59 L 96 05/26/19 15:06 05/26/19 15:06 05/26/19 15:06 05/26/19 15:06 05/26/19 15:06 - Physical Exam General Appearance: Yes: Nourished, Appropriately Dressed. No: Apparent Distress HEENT: positive: Normal Voice. negative: Scleral Icterus (R), Scleral Icterus ( L) Neck: positive: Supple. negative: Tender Respiratory/Chest: positive: Rhonchi, Wheezing. negative: Chest Tender, Respiratory Distress, Accessory Muscle Use, Labored Respiration Cardiovascular: positive: Regular Rhythm, Regular Rate, S1, S2. negative: JVD Vascular Pulses: Dorsalis-Pedis (R): 2+, Doralis-Pedis (L): 2+ Gastrointestinal/Abdominal: positive: Normal Bowel Sounds, Protuberent. negative: Tender, Guarding, Rebound, Tenderness Male Genitalia: positive: normal genitalia. negative: discharge, CVAT, hematuria Musculoskeletal: positive: Normal Inspection. 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 failed 05/26/19 20:25 post void residual on bladder u/s was 80cc UA is remarkable for nitrites, leukocyte esterase, blood. -The importance of taking his medication stressed to the patient -Received 500cc of normal saline -Ceftriaxone 1g IV Pt after some initial difficulty has agreed to admission. 05/26/19 20:27 05/26/19 21:17 Dr. Carla Zambrano requested chest x-ray and will be admitting to his service 05/27/19 00:38 *DC/Admit/Observation/Transfer Diagnosis at time of Disposition: UTI (urinary tract infection) - Discharge Dispostion Condition at time of disposition: Worsened - Referrals - Patient Instructions - Post Discharge Activity
[2019-05-26 19:29] LABS: EPI CELLS 4.6 /HPF (0-5/HPF); HYALINE CASTS 4 /lpf (0-8); URINE APPEARANCE TURBID; URINE BACTERIA 2038.6 /hpf (NEGATIVE); URINE BILIRUBIN 1+ (NEGATIVE); URINE COLOR DK YELLOW; URINE GLUCOSE (UA) NEGATIVE (NEGATIVE); URINE KETONE TRACE (NEGATIVE); URINE LEUK ESTERASE 3+ (NEGATIVE); URINE NITRITE POSITIVE (NEGATIVE); URINE PROTEIN 1+ (NEGATIVE); URINE RBC 10 /hpf (0-4); URINE WBC 804 /hpf (0-5)
[2019-05-26 19:43] VITALS: BP 107/75
--- NOTE | 2019-05-26 19:48 | PDOC ---
*Physical Exam - Vital Signs Last Vital Signs Temp Pulse Resp BP Pulse Ox 97.6 F 99 H 18 107/75 97 05/26/19 15:06 05/26/19 19:42 05/26/19 19:42 05/26/19 19:42 05/26/19 19:42 - Physical Exam General Appearance: Yes: Nourished Neck: positive: Trachea midline Respiratory/Chest: positive: Lungs Clear, Normal Breath Sounds Cardiovascular: positive: Regular Rate, S1, S2 Gastrointestinal/Abdominal: positive: Flat, Soft. negative: Tender Musculoskeletal: positive: Normal Inspection Extremity: positive: Normal Capillary Refill, Normal Inspection Integumentary: positive: Normal Color, Dry, Warm Neurologic: positive: Fully Oriented, Alert, Normal Mood/Affect ED Treatment Course - LABORATORY CBC & Chemistry Diagram: 05/26/19 17:52 05/26/19 17:52 - ADDITIONAL ORDERS Additional order review: Laboratory Results 05/26/19 05/26/19 05/26/19 19:00 17:52 17:52 WBC 12.9 H RBC 4.65 Hgb 14.4 Hct 43.3 MCV 93.2 MCH 30.9 MCHC 33.2 RDW 14.8 Plt Count 145 D MPV 10.5 Absolute Neuts (auto) 10.5 H Neutrophils % 81.4 Lymphocytes % 7.2 L D Monocytes % 10.1 Eosinophils % 0.3 Basophils % 1.0 Nucleated RBC % 0 Sodium 139 Potassium 3.8 Chloride 102 Carbon Dioxide 29 Anion Gap 8 BUN 30.1 H Creatinine 1.7 H Est GFR (CKD-EPI)AfAm 47.98 Est GFR (CKD-EPI)NonAf 41.40 Random Glucose 76 Calcium 9.3 Total Bilirubin 2.7 H AST 21 ALT 35 Alkaline Phosphatase 68 Total Protein 7.4 Albumin 3.7 Urine Color Dk yellow Urine Appearance Turbid Urine pH 5.0 Ur Specific [place] 1.021 Urine Protein 1+ H Urine Glucose (UA) Negative Urine Ketones Trace H Urine Blood 1+ H Urine Nitrite Positive H Urine Bilirubin 1+ H Urine Urobilinogen 2.0 Ur Leukocyte Esterase 3+ H Urine WBC (Auto) 804 Urine RBC (Auto) 10 Urine Casts (Auto) 4 U Epithel Cells (Auto) 4.6 Urine Bacteria (Auto) 2038.6 05/26/19 17:52 RBC 4.65 MCV 93.2 MCHC 33.2 RDW 14.8 MPV 10.5 Neutrophils % 81.4 Lymphocytes % 7.2 L D Monocytes % 10.1 Eosinophils % 0.3 Basophils % 1.0 Medical Decision Making - Medical Decision Making 05/26/19 19:45 63 yo male h/o chf ( systolic, diastolic ) ckd, prostatic hypertrophy, here with c/o difficulty urinating. c/o dysuria. denies f/c n/f lower abd pain during urination. has seen urologist inthe past for retention ( dr duarte per chart review ). pt pending ua. signed out to me by previou doctor. focused ED us bladder performed for post void volume shows 80 mL in urine. positive for UTI. due to increased creatinine 1.7.pt on digoxin, infection fortunato treat with ceftriaxone. recommend inpatient treatment. no old cultures in the chart. given small bolus. pt chart review shows normal bp in the 90's systolic. here today is 107/60 *DC/Admit/Observation/Transfer Diagnosis at time of Disposition: UTI (urinary tract infection) - Discharge Dispostion Condition at time of disposition: Worsened - Referrals Referrals: Carla Zambrano MD [Primary Care Provider] - - Patient Instructions - Post Discharge Activity
[2019-05-26] MEDS ORDERED: SODIUM CHLORIDE 0.9% 500 ML INFUS.BAG IV ONE (20:00)
[2019-05-26] MEDS ORDERED: CEFTRIAXONE 1 GM/50 ML BAG ONE (20:07)
[2019-05-27 01:27] VITALS: TEMP 98.7; BMI 33.0
[2019-05-27] MEDS ORDERED: CEFTRIAXONE 1 GM in DEXTROSE 5%-WATER - 50 ML IVPB ONE (03:00)
[2019-05-27] MEDS ORDERED: CEFTRIAXONE 1 GM in DEXTROSE 5%-WATER - 50 ML IVPB SCH (10:00)
--- NOTE | 2019-05-27 10:45 | EKG ---
Test Reason : Blood Pressure : / mmHG Vent. Rate : 091 BPM Atrial Rate : 091 BPM P-R Int : 172 ms QRS Dur : 114 ms QT Int : 378 ms P-R-T Axes : 053 -06 -39 degrees QTc Int : 464 ms SINUS RHYTHM WITH FREQUENT PREMATURE VENTRICULAR COMPLEXES POSSIBLE LEFT ATRIAL ENLARGEMENT INCOMPLETE LEFT BUNDLE BRANCH BLOCK NONSPECIFIC T WAVE ABNORMALITY MARKED T WAVE ABNORMALITY, CONSIDER LATERAL ISCHEMIA PROLONGED QT ABNORMAL ECG WHEN COMPARED WITH ECG OF 01-NOV-2017 11:06, QUESTIONABLE CHANGE IN QRS AXIS Confirmed by MD Swathi, Rogelio ([id number]) on 05/27/2019 10:44:51 AM Referred By: Confirmed By:Rogelio Echevarria MD
== END 2019-05-27 08:09 | disposition left against medical advice (07) | DRG 690 ==
LOC: JER 14:56 → JERBED 20:14 → J7W 05-27 01:01
PROVIDERS: ADMIT Internal Medicine; ATTEND Internal Medicine
DX: N39.0 Urinary tract infection, site not specified (principal); I13.0 Hypertensive heart and chronic kidney disease with heart failure and stage 1 through stage 4 chronic kidney disease, or unspecified chronic kidney disease; I50.40 Unspecified combined systolic (congestive) and diastolic (congestive) heart failure; N18.9 Chronic kidney disease, unspecified; N40.0 Benign prostatic hyperplasia without lower urinary tract symptoms; E78.5 Hyperlipidemia, unspecified
CPT/HCPCS: 36415; 71045-TC-FY; 80053; 81003; 85025; 87077; 87086; 87186; 93005; 93010; 99282-25

== ENCOUNTER 2022-09-17 17:47 | Inpatient (IN) | payer OTHER ==
[2022-09-17] MEDS ORDERED: PIPERACILLIN/TAZOB 4.5 GM 4.5 GM in DEXTROSE 5%-WATER 100 ML IVPB ONE (18:55)
[2022-09-17 19:06] VITALS: BMI 31.7
[2022-09-17] MEDS ORDERED: PIPERACILLIN/TAZOB 4.5 GM 4.5 GM/100 ML BAG IVPB ONE (19:32)
[2022-09-17 19:36] LABS: VENOUS BASE EXCESS -3.4 mmol/L (-2-2); VENOUS PCO2 43.6 mmHg (38-52); VENOUS PH 7.331 (7.310-7.410)
[2022-09-17 19:58] LABS: LACTIC ACID 2.1 mmol/L (0.4-2.0)
[2022-09-17 20:02] LABS: BASO % 0.2 % (0-2.0); EOS % 0.1 % (0-4.5); HEMATOCRIT 47.4 % (35.4-49); HEMOGLOBIN 15.9 GM/dL (11.7-16.9); LYMPH % 9.1 % (8-40); MCH 31.4 pg (25.7-33.7); MCHC 33.5 g/dl (32.0-35.9); MEAN CELL VOLUME 93.7 fl (80-96); MEAN PLT VOLUME 11.6 fl (7.5-11.1); MONO % 6.7 % (3.8-10.2); NEUT % 83.9 % (42.8-82.8); PLATELET COUNT 70 10^3/uL (134-434); RBC 5.06 M/mm3 (4.00-5.60); RDW 16.8 % (11.9-15.9); WHITE BLOOD COUNT 5.6 K/mm3 (4.0-10.0)
[2022-09-17 20:10] LABS: INR 1.21 (0.83-1.09)
[2022-09-17 20:12] LABS: ACTIVATED PTT 30.8 SECONDS (25.2-36.5)
[2022-09-17 20:30] LABS: CHLORIDE 96 mmol/L (98-107); SODIUM 135 mmol/L (136-145)
[2022-09-17 20:32] LABS: CALCIUM 9.5 mg/dL (8.5-10.1)
[2022-09-17 20:33] LABS: ALBUMIN 3.3 g/dl (3.4-5.0); ANION GAP 15 MMOL/L (8-16); CO2 24 mmol/L (21-32); GLUCOSE,RANDOM 73 mg/dL (74-106)
[2022-09-17 20:36] LABS: CREATININE 2.5 mg/dL (0.55-1.3); SGOT/AST 26 U/L (15-37); SGPT/ALT 27 U/L (13-61)
[2022-09-17 20:39] LABS: ALK PHOS 81 U/L (45-117)
[2022-09-17] MEDS ORDERED: LACTATED RINGERS SOLUTION 1000 ML INFUS.BAG IV ONE (20:39)
[2022-09-17] MEDS ORDERED: FUROSEMIDE 40 MG/4 ML INJECTABLE VIAL IVPUSH ONE (20:44)
[2022-09-17 20:58] LABS: BLOOD UREA NITROGEN 128.4 mg/dL (7-18)
[2022-09-17] MEDS ORDERED: FUROSEMIDE 40 MG/4 ML INJECTABLE VIAL ONE (21:13)
[2022-09-17] MEDS ORDERED: DEXTROSE 50%-WATER - 25 GM/50 ML VIAL IVPUSH ONE (21:20)
[2022-09-17] MEDS ORDERED: DEXTROSE 50%-WATER 25 GM/50 ML DISP.SYRIN ONE (21:32)
[2022-09-17] MEDS: LACTATED RINGERS SOLUTION 1000 ML INFUS.BAG IV ONE ×2 (21:48→23:16)
[2022-09-17] MEDS ORDERED: ACETAMINOPHEN 325 MG TABLET (FP) PO PRN (22:18)
[2022-09-17] MEDS ORDERED: DOPAMINE 400 MG/D5W - 400,000 MCG/250 ML INFUS.BAG IVPB SCH (22:30)
[2022-09-17] MEDS ORDERED: DOPAMINE 400 MG/D5W - 400,000 MCG/250 ML INFUS.BAG IVPB ONE (23:10)
[2022-09-17] MEDS: DOPAMINE 400 MG/D5W - 400,000 MCG/250 ML INFUS.BAG IVPB SCH (23:38)
[2022-09-17] MEDS ORDERED: AMIODARONE IN DEXTROSE,ISO-OSM 150 MG/100 ML BAG IVPB ONE (23:45)
[2022-09-17] MEDS ORDERED: AMIODARONE IN DEXTROSE,ISO-OSM 150 MG/100 ML BAG ONE (23:56)
[2022-09-18] MEDS ORDERED: AMIODARONE IN DEXTROSE,ISO-OSM 360 MG/200 ML BAG ONE (00:54)
[2022-09-18] MEDS: FUROSEMIDE INJECTION 100 MG in DEXTROSE 5%-WATER - 90 ML IVPB SCH ×2 (00:59→22:05)
[2022-09-18] MEDS ORDERED: AMIODARONE HCL INJECTION 150 MG in DEXTROSE 5%-WATER - 100 ML IVPB ONE (00:59)
[2022-09-18] MEDS: AMIODARONE IN DEXTROSE,ISO-OSM 360 MG/200 ML BAG IV SCH (01:05)
[2022-09-18] MEDS ORDERED: AMIODARONE IN DEXTROSE,ISO-OSM 360 MG/200 ML BAG IV SCH (06:30)
[2022-09-18] MEDS ORDERED: METOPROLOL TARTRATE 5 MG/5 ML VIAL IVPUSH ONE (08:04)
[2022-09-18] MEDS ORDERED: METOPROLOL TARTRATE 5 MG/5 ML VIAL ONE (08:06)
[2022-09-18] MEDS ORDERED: ASPIRIN 81 MG CHEWABLE TABLETS PO ONE (08:46)
[2022-09-18] MEDS ORDERED: ASPIRIN 81 MG CHEWABLE TABLETS ONE (08:54)
[2022-09-18] MEDS ORDERED: HEPARIN NA (PORCINE) 5,000 UNITS/ML 1ML VIAL ONE (08:54)
[2022-09-18] MEDS ORDERED: PANTOPRAZOLE SODIUM 40 MG VIAL ONE (08:55)
[2022-09-18] MEDS: PANTOPRAZOLE SODIUM 40 MG VIAL IVPUSH SCH (08:56)
[2022-09-18] MEDS: HEPARIN NA (PORCINE) 5,000 UNITS/ML 1ML VIAL SQ SCH ×2 (08:57→22:54)
[2022-09-18] MEDS ORDERED: CALCIUM GLUCONATE 10% - 1,000 MG/10 ML VIAL IVPB ONE (09:10)
[2022-09-18] MEDS ORDERED: CALCIUM GLUCONATE 10% - 1,000 MG/10 ML VIAL ONE (09:18)
[2022-09-18] MEDS ORDERED: CALCIUM GLUC IN NACL, ISO-OSM 1 GM/50 ML BAG IVPB ONE ×2 (09:20→09:27)
[2022-09-18 10:54] LABS: CHLORIDE 93 mmol/L (98-107); SODIUM 132 mmol/L (136-145)
[2022-09-18 10:58] LABS: CALCIUM 9.7 mg/dL (8.5-10.1)
[2022-09-18 10:59] LABS: ALBUMIN 3.4 g/dl (3.4-5.0); ANION GAP 17 MMOL/L (8-16); CO2 22 mmol/L (21-32); GLUCOSE,RANDOM 177 mg/dL (74-106); MAGNESIUM 3.2 mg/dL (1.8-2.4)
[2022-09-18 11:02] LABS: PHOSPHOROUS 5.3 mg/dL (2.5-4.9); SGOT/AST 28 U/L (15-37); SGPT/ALT 29 U/L (13-61)
[2022-09-18 11:03] LABS: TOT PROT 7.6 g/dl (6.4-8.2)
[2022-09-18 11:03] LABS: LACTIC ACID 4.5 mmol/L (0.4-2.0)
[2022-09-18 11:04] LABS: BILIRUBIN,TOTAL 2.8 mg/dL (0.2-1)
[2022-09-18 11:05] LABS: ALK PHOS 86 U/L (45-117)
[2022-09-18 11:09] LABS: N-TERMINAL BNP 30518.4 pg/ml (5-125)
[2022-09-18 11:10] LABS: BLOOD UREA NITROGEN 123.7 mg/dL (7-18)
[2022-09-18] MEDS ORDERED: NOREPINEPHRINE BITARTRATE 4 MG/4 ML ML IV ONE ×2 (11:12→17:16)
[2022-09-18] MEDS ORDERED: NOREPINEPHRINE BITARTRATE 4,000 MCG in DEXTROSE 5%-WATER - 496 ML IV SCH ×2 (11:15→17:30)
[2022-09-18] MEDS: MUPIROCIN 2% TOPICAL OINTMENT FOR DECOLONIZATION NS SCH ×2 (15:36→22:04)
[2022-09-18] MEDS ORDERED: MIDAZOLAM HCL 2 MG/2 ML SINGLE DOSE VIAL IVPUSH ONE ×2 (16:23→17:18)
[2022-09-18] MEDS ORDERED: MIDAZOLAM HCL 2 MG/2 ML SINGLE DOSE VIAL ONE (16:57)
[2022-09-18] MEDS ORDERED: VASOPRESSIN 20 UNITS/ML VIAL IV ONE ×2 (17:16→17:37)
[2022-09-18] MEDS: VASOPRESSIN 40 UNITS/100 ML BAG IV SCH (17:30)
[2022-09-18] MEDS: NOREPINEPHRINE 0.9 % NACL 8 MG/250 ML BAG IVPB SCH ×4 (17:56→23:35)
[2022-09-18] MEDS ORDERED: DIGOXIN 0.5 MG/2 ML AMPUL IVPUSH ONE (18:47)
[2022-09-18] MEDS ORDERED: DIGOXIN 0.5 MG/2 ML AMPUL ONE (18:52)
[2022-09-18 19:33] LABS: VENOUS BASE EXCESS -8.7 mmol/L (-2-2); VENOUS O2 SATURATION 26.9 % (70-80); VENOUS PCO2 44.9 mmHg (38-52); VENOUS PH 7.235 (7.310-7.410)
[2022-09-18] MEDS ORDERED: RAPID SEQUENCE INTUBATION KIT NR ONE (20:02)
[2022-09-18] MEDS ORDERED: FENTANYL CITRATE/PF 50 MCG/ML VIAL IVPUSH ONE (20:05)
[2022-09-18] MEDS ORDERED: ROCURONIUM BROMIDE 50 MG/5 ML VIAL IV ONE (20:05)
[2022-09-18] MEDS ORDERED: ETOMIDATE 20 MG/10 ML VIAL IVPUSH ONE (20:06)
[2022-09-18] MEDS ORDERED: fentaNYL CITRATE 250 MCG/5 ML VIAL ONE (20:07)
[2022-09-18] MEDS ORDERED: PHENYLEPHRINE HCL 10 MG/1 ML SINGLE DOSE VIAL ONE (20:09)
[2022-09-18] MEDS ORDERED: MIDAZOLAM IN 0.9 % SOD.CHLORID 1 MG/1 ML PLAST..BAG ONE (20:26)
[2022-09-18 20:45] LABS: CHLORIDE 101 mmol/L (98-107); SODIUM 136 mmol/L (136-145)
[2022-09-18 20:48] LABS: ANION GAP 17 MMOL/L (8-16); CO2 18 mmol/L (21-32); GLUCOSE,RANDOM 142 mg/dL (74-106)
[2022-09-18 20:51] LABS: CREATININE 3.1 mg/dL (0.55-1.3); SGOT/AST 64 U/L (15-37); SGPT/ALT 45 U/L (13-61)
[2022-09-18 20:52] LABS: BILIRUBIN,TOTAL 2.1 mg/dL (0.2-1); TOT PROT 5.8 g/dl (6.4-8.2)
[2022-09-18 20:52] LABS: BASO % 0.2 % (0-2.0); HEMATOCRIT 50.7 % (35.4-49); HEMOGLOBIN 16.1 GM/dL (11.7-16.9); LYMPH % 8.6 % (8-40); MCH 30.8 pg (25.7-33.7); MCHC 31.8 g/dl (32.0-35.9); MEAN CELL VOLUME 96.9 fl (80-96); MEAN PLT VOLUME 10.8 fl (7.5-11.1); MONO % 11.3 % (3.8-10.2); NEUT % 79.9 % (42.8-82.8); PLATELET COUNT 51 10^3/uL (134-434); RBC 5.24 M/mm3 (4.00-5.60); RDW 17.6 % (11.9-15.9); WHITE BLOOD COUNT 7.1 K/mm3 (4.0-10.0)
[2022-09-18 20:54] LABS: ALK PHOS 65 U/L (45-117)
[2022-09-18 20:55] LABS: LACTIC ACID 8.1 mmol/L (0.4-2.0)
[2022-09-18 20:56] LABS: ALBUMIN 2.6 g/dl (3.4-5.0); CALCIUM 8.2 mg/dL (8.5-10.1)
[2022-09-18] MEDS: PHENYLEPHRINE NS PREMIX 50,000 MCG/500 ML BAG CVP SCH (21:06)
[2022-09-18] MEDS ORDERED: MIDAZOLAM IN 0.9 % SOD.CHLORID 100 MG/100 ML PLAST..BAG IVPB SCH (21:30)
[2022-09-18 21:45] LABS: ARTERIAL BLD GAS O2 SATURATION 93.7 % (95-98); ARTERIAL BLOOD GAS BASE EXCESS -23.4 mmol/L (-2-2); ARTERIAL BLOOD GAS PO2 103.7 mmHg (80-100)
[2022-09-18 21:55] LABS: VENT MODE A/C; VENT RATE 20
[2022-09-18 21:56] LABS: ARTERIAL BLOOD GAS pH 6.958 (7.350-7.450)
[2022-09-18] MEDS ORDERED: SODIUM BICARBONATE 8.4% 50 MEQ/50 ML DISP.SYRIN IVPUSH ONE ×2 (21:57)
[2022-09-18] MEDS ORDERED: CHLORHEXIDINE GLUCONATE 4% CLEANSER FOR DECOLONIZATION TP SCH (22:00)
[2022-09-18] MEDS: SODIUM BICARBONATE 8.4% - 150 MEQ in DEXTROSE 5%-WATER - 1,000 ML IV SCH (22:54)
[2022-09-18] MEDS: DOPAMINE 400 MG/D5W - 400,000 MCG/250 ML INFUS.BAG IVPB SCH (23:55)
[2022-09-19 00:11] LABS: ARTERIAL BLD GAS O2 SATURATION 97.4 % (95-98); ARTERIAL BLOOD GAS BASE EXCESS -20.4 mmol/L (-2-2); ARTERIAL BLOOD GAS PO2 138.3 mmHg (80-100)
[2022-09-19 00:17] LABS: ALLENS TEST POSITIVE; VENT MODE A-A/C
[2022-09-19 00:18] LABS: VENT RATE 20
[2022-09-19 00:19] LABS: ARTERIAL BLOOD GAS pH 7.029 (7.350-7.450)
[2022-09-19] MEDS ORDERED: SODIUM BICARBONATE 8.4% 50 MEQ/50 ML DISP.SYRIN IVPUSH ONE ×2 (00:19)
[2022-09-19 00:43] LABS: LACTIC ACID 9.1 mmol/L (0.4-2.0)
[2022-09-19] MEDS: AMIODARONE IN DEXTROSE,ISO-OSM 360 MG/200 ML BAG IV SCH (01:02)
[2022-09-19] MEDS: PHENYLEPHRINE NS PREMIX 50,000 MCG/500 ML BAG CVP SCH ×3 (01:02→12:29)
[2022-09-19] MEDS: NOREPINEPHRINE 0.9 % NACL 8 MG/250 ML BAG IVPB SCH ×2 (06:21→10:59)
[2022-09-19 07:03] LABS: ARTERIAL BLOOD GAS BASE EXCESS -18.7 mmol/L (-2-2); ARTERIAL BLOOD GAS PO2 152.7 mmHg (80-100)
[2022-09-19 07:05] LABS: VENT MODE A/C; VENT RATE 22
[2022-09-19 07:06] LABS: ARTERIAL BLOOD GAS pH 7.058 (7.350-7.450)
[2022-09-19 07:41] LABS: HEMATOCRIT 53.2 % (35.4-49); HEMOGLOBIN 17.1 GM/dL (11.7-16.9); MCH 31.5 pg (25.7-33.7); MCHC 32.1 g/dl (32.0-35.9); MEAN CELL VOLUME 98.2 fl (80-96); MEAN PLT VOLUME 11.7 fl (7.5-11.1); PLATELET COUNT 61 10^3/uL (134-434); RBC 5.41 M/mm3 (4.00-5.60); RDW 17.5 % (11.9-15.9); WHITE BLOOD COUNT 13.1 K/mm3 (4.0-10.0)
[2022-09-19] MEDS ORDERED: SODIUM BICARBONATE 8.4% 50 MEQ/50 ML VIAL IVPUSH ONE ×2 (07:45→08:00)
[2022-09-19 07:52] LABS: CHLORIDE 99 mmol/L (98-107); SODIUM 135 mmol/L (136-145)
[2022-09-19 08:02] LABS: CALCIUM 8.1 mg/dL (8.5-10.1)
[2022-09-19 08:03] LABS: ALBUMIN 2.4 g/dl (3.4-5.0); ANION GAP 22 MMOL/L (8-16); CO2 14 mmol/L (21-32); GLUCOSE,RANDOM 73 mg/dL (74-106); MAGNESIUM 2.8 mg/dL (1.8-2.4)
[2022-09-19 08:06] LABS: CREATININE 3.3 mg/dL (0.55-1.3)
[2022-09-19 08:07] LABS: TOT PROT 5.6 g/dl (6.4-8.2)
[2022-09-19 08:09] LABS: ALK PHOS 71 U/L (45-117)
[2022-09-19 08:19] LABS: BILIRUBIN,TOTAL 4.2 mg/dL (0.2-1)
[2022-09-19 08:40] LABS: BLOOD UREA NITROGEN 114.7 mg/dL (7-18); PHOSPHOROUS 9.2 mg/dL (2.5-4.9); SGOT/AST 2604 U/L (15-37); SGPT/ALT 1656 U/L (13-61)
[2022-09-19] MEDS: PANTOPRAZOLE SODIUM 40 MG VIAL IVPUSH SCH (09:09)
[2022-09-19] MEDS: MUPIROCIN 2% TOPICAL OINTMENT FOR DECOLONIZATION NS SCH (09:09)
[2022-09-19] MEDS: HEPARIN NA (PORCINE) 5,000 UNITS/ML 1ML VIAL SQ SCH (09:09)
[2022-09-19] MEDS ORDERED: CEFTRIAXONE 1 GM in DEXTROSE 5%-WATER - 50 ML IVPB ONE (10:30)
[2022-09-19 12:22] VITALS: PULSE 147
[2022-09-19] MEDS: VASOPRESSIN 40 UNITS/100 ML BAG IV SCH (12:51)
[2022-09-19] MEDS ORDERED: AMIODARONE IN DEXTROSE,ISO-OSM 360 MG/200 ML BAG IV SCH ×3 (13:23→14:34)
[2022-09-19] MEDS: SODIUM BICARBONATE 8.4% - 150 MEQ in DEXTROSE 5%-WATER - 1,000 ML IV SCH (14:02)
[2022-09-19 14:34] VITALS: TEMP 98.6
[2022-09-19 14:41] VITALS: RESP 23
[2022-09-19 15:07] VITALS: BP 62/40
[2022-09-19] MEDS ORDERED: EPINEPHrine 1:1,000 1,000 MCG in DEXTROSE 5%-WATER - 249 ML IVPB SCH (16:15)
== END 2022-09-19 19:15 | disposition expired | DRG 291 ==
LOC: JER 17:47 → JERBED 22:41 → JICU 09-18 13:30
PROVIDERS: ADMIT Internal Medicine Pulmonary Disease; ATTEND Internal Medicine Pulmonary Disease
PROC: 05HN33Z Insertion of Infusion Device into Left Internal Jugular Vein, Percutaneous Approach (ICD-10-PCS; principal; 2022-09-18)
PROC: B544ZZA Ultrasonography of Left Jugular Veins, Guidance (ICD-10-PCS; 2022-09-18)
PROC: 0BH17EZ Insertion of Endotracheal Airway into Trachea, Via Natural or Artificial Opening (ICD-10-PCS; 2022-09-18)
PROC: 4A133B1 Monitoring of Arterial Pressure, Peripheral, Percutaneous Approach (ICD-10-PCS; 2022-09-18)
PROC: 4A133J1 Monitoring of Arterial Pulse, Peripheral, Percutaneous Approach (ICD-10-PCS; 2022-09-18)
PROC: 5A1945Z Respiratory Ventilation, 24-96 Consecutive Hours (ICD-10-PCS; 2022-09-18)
PROC: 5A12012 Performance of Cardiac Output, Single, Manual (ICD-10-PCS; 2022-09-19)
DX: I13.0 Hypertensive heart and chronic kidney disease with heart failure and stage 1 through stage 4 chronic kidney disease, or unspecified chronic kidney disease (principal); G93.41 Metabolic encephalopathy; I50.43 Acute on chronic combined systolic (congestive) and diastolic (congestive) heart failure; J96.21 Acute and chronic respiratory failure with hypoxia; K72.00 Acute and subacute hepatic failure without coma; J96.22 Acute and chronic respiratory failure with hypercapnia; E87.20 Acidosis, unspecified; E87.1 Hypo-osmolality and hyponatremia; N17.9 Acute kidney failure, unspecified; I25.10 Atherosclerotic heart disease of native coronary artery without angina pectoris; I48.0 Paroxysmal atrial fibrillation; E78.5 Hyperlipidemia, unspecified; R57.0 Cardiogenic shock; N18.30 Chronic kidney disease, stage 3 unspecified; I48.91 Unspecified atrial fibrillation; E87.70 Fluid overload, unspecified; D69.6 Thrombocytopenia, unspecified; R94.5 Abnormal results of liver function studies; N40.0 Benign prostatic hyperplasia without lower urinary tract symptoms
CPT/HCPCS: 0241U-QW; 31500; 36415; 36600; 71045-TC-FY; 76775-TC; 80053; 82308; 82550; 82553; 82803; 82962; 83605; 83735; 83880; 84100; 84443; 84484; 85025; 85610; 85730; 86850; 86900; 86901; 87040; 93005; 93010; 93306-TC; 93970-TC; 94002; 99285-25; J0282; J1250; J1644; J3490